=== PATIENT | male | born 1990 | race Caucasian/White ===

== ENCOUNTER 2016-10-13 01:19 | Emergency (ER) | payer OTHER ==
[~2016-10-13] VITALS: Ht 182.9 cm; Wt 117.9 kg
--- NOTE | ~2016-10-13 | EKG ---
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
[2016-10-13] MEDS ORDERED: ACCUNEB SO1.25 MG/1 (01:30)
[2016-10-13] MEDS ORDERED: VENTOLIN HFA 1818 GM INH (02:10)
[2016-10-13] MEDS ORDERED: PREDNISONE 20 M20 MG PO (02:10)
[2016-10-13 02:36] VITALS: BP 107/57
== END 2016-10-13 02:37 | disposition home or self-care (01) ==
LOC: ER 01:19
DX: J45.901 Unspecified asthma with (acute) exacerbation (principal)

== ENCOUNTER 2018-02-02 14:18 | Emergency (ER) | payer OTHER ==
[~2018-02-02] VITALS: Ht 180.3 cm; Wt 116.1 kg
--- NOTE | ~2018-02-02 | EKG ---
[address] [place] [address] ELECTROCARDIOGRAM REPORT Name: ORI GRIFFITH Room #: KEKE Bowen#: [id number] Admission: 02/02/18 Attend Phys: Discharge: 02/02/18 Date of : [birth year] Report #: [id number] THIS REPORT FOR: //name// 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 : 1990 Requested By: Noam Hall Order Number: [id number] MD: Tiago Diaz Measurements Intervals [place] Rate: 85 P: 42 NM: 155 QRS: 42 QRSD: 95 T: 30 QT: 359 QTc: 427 Interpretive Statements Sinus rhythm Normal tracing Compared to ECG 01/17/2017 06:25:24 No significant changes Electronically Signed On 02-02-2018 16:56:46 CDT by Tiago Diaz [email or web address] <ELECTRONICALLY SIGNED> By: Tiago Diaz MD, [facility] 02/02/18 1656 1421 1421 Tiago Diaz MD, FACC /EPI
[~2018-02-02 14:18] MED LIST: ACCUNEB SO1.25 MG/1; AMOXICILLIN 50500 M1 PO; NAPROSYN500 MG PO; NOHOMEMEDICATIONS; PREDNISONE 20 M20 MG PO; VENTOLIN HFA 1818 GM INH
[2018-02-02 14:51] LABS: HEMATOCRIT 43.1 % (42.0-52.0); HEMOGLOBIN 14.6 gm/dL (14.0-18.0); MCH 27.3 pg (26.0-34.0); MCHC 33.8 g/dL (28.0-37.0); MCV 80.8 fL (80.0-100.0); PLATELET COUNT 244 thou/uL (150-400); RBC 5.34 mil/uL (4.50-6.00); WBC 6.8 thou/uL (4.0-11.0)
[2018-02-02 14:58] LABS: ANION GAP 11 mmol/L (7-16); BUN 8 mg/dL (7-18); CALCIUM 9.4 mg/dL (8.5-10.1); CHLORIDE 101 mmol/L (98-107); CO2 25 mmol/L (21-32); GLUCOSE 111 mg/dL (74-106); POTASSIUM 3.3 mmol/L (3.5-5.1); SODIUM 137 mmol/L (136-145)
[2018-02-02 15:06] LABS: TROPONIN-I <0.06 ng/mL (<0.06)
[2018-02-02 15:35] LABS: ABSOLUTE NEUTROPHILS 4.1 thou/uL (1.4-8.2)
[2018-02-02 15:36] LABS: LARGE PLATELETS FEW
[2018-02-02 16:08] VITALS: BP 139/78
== END 2018-02-02 16:08 | disposition home or self-care (01) ==
LOC: ER 14:18
PROVIDERS: Physician Assistant
DX: R07.89 Other chest pain (principal); J45.909 Unspecified asthma, uncomplicated

== ENCOUNTER 2018-10-10 21:22 | Emergency (ER) | payer BC ==
[~2018-10-10] VITALS: Ht 177.8 cm; Wt 127.0 kg
[2018-10-10] MEDS ORDERED: NOHOMEMEDICATIONS (21:34)
[2018-10-10] MEDS ORDERED: PREDNISONE 20 M20 M1 PO (22:01)
[2018-10-10] MEDS ORDERED: VENTOLIN HFA 1818 GM INH (22:01)
[2018-10-10 22:15] VITALS: BP 129/77
--- NOTE | 2018-10-11 08:22 | EKG ---
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: : 1990 Requested By: Prabhu Yen Order Number: [id number] MD: Kenny Alston Measurements Intervals [place] Rate: 83 P: 0 VT: 151 QRS: 30 QRSD: 89 T: 2 QT: 356 QTc: 419 Interpretive Statements Sinus rhythm Compared to ECG 02/02/2018 14:21:12 No significant changes Electronically Signed On 10-11-2018 8:22:30 CDT by Kenny Alston [email or web address] ��������������������������������������������� <ELECTRONICALLY SIGNED> ���������������������������������������� By: Kenny Alston MD ��������������������������������������������� 10/11/18821 27 27 MD BRODERICK Rudolph
== END 2018-10-10 22:15 | disposition home or self-care (01) ==
LOC: ER 21:22
DX: J45.901 Unspecified asthma with (acute) exacerbation (principal)